=== PATIENT | female | born 1980 | race Caucasian/White ===

== ENCOUNTER 2018-12-05 18:20 | Emergency (ER) | payer SELFPAY ==
[~2018-12-05] VITALS: Ht 152.4 cm; Wt 86.2 kg
[2018-12-05 18:32] VITALS: BP 139/86
--- NOTE | 2018-12-05 21:08 | NUR ---
CALLED PT FROM [facility]; NO ANSWER.
--- NOTE | 2018-12-05 21:37 | NUR ---
PT CALLED FROM [facility], NO ANSWER, LWBS
--- NOTE | 2018-12-05 21:37 | NUR ---
PATIENT LEFT WITHOUT BEING SEEN BY DR. GARCÍA. NO FURTHER CARE PROVIDED FOR PATIENT.
== END 2018-12-05 21:37 | disposition left against medical advice (07) ==
LOC: MED 18:20
DX: M79.601 Pain in right arm (principal); Z53.21 Procedure and treatment not carried out due to patient leaving prior to being seen by health care provider